=== PATIENT | male | born 1995 | race Caucasian/White ===

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

== ENCOUNTER 2020-03-28 17:26 | Emergency (ER) | payer OTHER ==
[~2020-03-28] VITALS: Ht 170.2 cm; Wt 64.0 kg
--- NOTE | 2020-03-28 17:40 | NUR ---
To ED bed 5
[2020-03-28 17:41] VITALS: BP 125/77
--- NOTE | 2020-03-28 17:55 | NUR ---
Dr. Gutierres at bedside.
--- NOTE | 2020-03-28 17:55 | NUR ---
24 year old male coming in for pleuritic chest pain that is nonradiating x 6 days. 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 states bent over a machine and had pressure against the chest and heard a "pop". states he thought pain would decrease but no success.reports SOB upon inhalation. otherwise, no other s/sx. pmhx: denies nka
[2020-03-28 17:57] VITALS: BP 125/77
[2020-03-28] MEDS ORDERED: KETOROLAC 30 MG/ML VIAL IM ONE (18:00)
--- NOTE | 2020-03-28 18:55 | NUR ---
Patient discharged with v/s stable. Written and verbal after care instructions given and explained. Patient alert, oriented and verbalized understanding of instructions. Ambulatory with steady gait. All questions addressed prior to discharge. ID band removed. Patient advised to follow up with PMD. Rx of valium and naprosyn given. Patient educated on indication of medication including possible reaction and side effects. Opportunity to ask questions provided and answered.
== END 2020-03-28 18:54 | disposition home or self-care (01) ==
LOC: MED 17:26
DX: S20.219A Contusion of unspecified front wall of thorax, initial encounter (principal); R07.9 Chest pain, unspecified; W19.XXXA Unspecified fall, initial encounter; Y93.89 Activity, other specified; Y92.89 Other specified places as the place of occurrence of the external cause; Y99.8 Other external cause status
CPT/HCPCS: 71045; 96372; 99283; J1885; Q0092

== ENCOUNTER 2022-07-22 15:50 | Emergency (ER) | payer OTHER ==
[~2022-07-22] VITALS: Ht 177.8 cm; Wt 67.6 kg
[2022-07-22 16:13] VITALS: BP 117/68
[2022-07-22] MEDS ORDERED: BACTO TP (17:01)
[2022-07-22] MEDS ORDERED: CEPH-588 PO (17:01)
[2022-07-22] MEDS ORDERED: IBUP-1842 PO (17:01)
--- NOTE | 2022-07-22 17:13 | NUR ---
Patient discharged with v/s stable. Written and verbal after care instructions ABOUT CELLULITIS given and explained. Patient alert, oriented and verbalized understanding of instructions. Ambulatory with steady gait. All questions addressed prior to discharge. ID band removed. Patient advised to follow up with PMD. Rx of BACTROBAN, KEFLEY AND MOTRIN given. Patient educated on indication of medication including possible reaction and side effects. Opportunity to ask questions provided and answered.
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
== END 2022-07-22 17:13 | disposition home or self-care (01) ==
LOC: MED 15:50
DX: S80.862A Insect bite (nonvenomous), left lower leg, initial encounter (principal); L03.116 Cellulitis of left lower limb; Z79.899 Other long term (current) drug therapy; W57.XXXA Bitten or stung by nonvenomous insect and other nonvenomous arthropods, initial encounter; Y93.89 Activity, other specified; Y92.89 Other specified places as the place of occurrence of the external cause; Y99.8 Other external cause status
CPT/HCPCS: 99283